=== PATIENT | male | born 2000 | race Caucasian/White ===

== ENCOUNTER → 2023-09-19 | Outpatient (CLI) | payer BC | LOC: COL.RAD 08:19 | DX: S43.432A Superior glenoid labrum lesion of left shoulder, initial encounter (principal); S43.025A Posterior dislocation of left humerus, initial encounter; X58.XXXA Exposure to other specified factors, initial encounter | CPT/HCPCS: A9575; Q9967 ==

== ENCOUNTER → 2023-11-14 | Outpatient (CLI) | payer BC | LOC: COL.RAD 14:52 | DX: N12 Tubulo-interstitial nephritis, not specified as acute or chronic (principal) ==